=== PATIENT | male | born 1960 | race Caucasian/White ===

== ENCOUNTER → 2023-01-31 13:29 | Outpatient (CLI) | payer OTHER, SELFPAY ==
--- NOTE | 2023-01-31 13:37 | DI.CT.S_ITS ---
PROCEDURE: CT KIDNEY URETER BLADDER (KUB) INDICATIONS: calculus of kidney TECHNIQUE: Axial sections were acquired from the lung bases to the pubic symphysis. Coronal and sagittal reformats were performed. For radiation dose reduction, the following was used: automated exposure control, adjustment of mA and/or kV according to patient size. COMPARISON: None. FINDINGS: Image quality: Excellent. Lung bases: Unremarkable. Heart: No significant findings. URINARY: Right Kidney: No stones or hydronephrosis. Right Ureter: No hydroureter. Left Kidney: There are multiple nonobstructing calculi within the lower pole of the left kidney, the largest of which measures 1.4 cm and diameter and 386 Hounsfield units in density. An obstructing calculus is present within the left proximal ureter which measures 1.8 cm in diameter and 859 Hounsfield units in density. There is moderate left hydronephrosis and perinephric fat stranding. Left Ureter: The downstream ureter is decompressed. No hydroureter or ureterolithiasis. Bladder: Normal wall thickness. No stones. ABDOMEN: Liver: Unremarkable. Gallbladder: Unremarkable. Biliary ducts: Unremarkable. Pancreas: Unremarkable. Spleen: Unremarkable. Adrenal Glands: Unremarkable. Stomach and Bowel: Stomach, small bowel loops, and colon are unremarkable. The appendix is thin walled and gas filled. Peritoneum: No abnormal intraperitoneal fluid. No free air. Ventral Wall: No hernia. Abdominal Nodes: No enlarged retroperitoneal or mesenteric lymph nodes. Vessels: Aorta and inferior vena cava are normal in size. PELVIS: Pelvic Organs: Unremarkable. Pelvic Nodes: Unremarkable. Miscellaneous: No inguinal hernias are seen. Bones: Unremarkable. IMPRESSION: 1. Multiple nonobstructing calculi within the left kidney. 2. Large obstructing calculus within the proximal left ureter with moderate resultant hydronephrosis and perinephric fat stranding. 3. No other acute intra-abdominal findings. Normal appendix. Dictated by: Andreia Hassan M.D. on 01/31/2023 at 15:53 Approved by: Andreia Hassan M.D. on 01/31/2023 at 15:57
== END ==
PROVIDERS: PCP Internal Medicine; Referring Provider Specialist; Visit Provider Specialist
DX: N13.2 Hydronephrosis with renal and ureteral calculous obstruction (principal)
CPT/HCPCS: 74176

== ENCOUNTER → 2023-02-21 10:53 | Outpatient (CLI) | payer OTHER, SELFPAY ==
--- NOTE | 2023-02-21 10:55 | DI.RAD.S_ITS ---
PROCEDURE: XR KUB INDICATIONS: kidney stones TECHNIQUE: One view of the abdomen acquired. COMPARISON: [facility], CT, CT KIDNEY URETER BLADDER (KUB), 01/31/2023, 14:08. FINDINGS: Surgical changes and devices: None. Bowel: Bowel gas pattern is normal. Soft tissues: Overall similar left renal and renal pelvis calcified stones, the largest measuring 2.6 x 2.2 cm in the renal pelvis, similar to prior. Intrarenal stones are also similar to prior. Bones: Degenerative changes. IMPRESSION: Left renal pelvis and intrarenal stones are similar compared to CT from 01/31/2023. Dictated by: Lobito Mares M.D. on 02/21/2023 at 13:52 Approved by: Lobito Mares M.D. on 02/21/2023 at 13:53
== END ==
PROVIDERS: PCP Internal Medicine; Referring Provider Specialist; Visit Provider Specialist
DX: N20.0 Calculus of kidney (principal)
CPT/HCPCS: 74018

== ENCOUNTER 2023-03-02 06:05 | Day surgery (SDC) | payer OTHER, SELFPAY ==
[2023-03-01 10:48] VITALS: BMI 37.5
--- NOTE | 2023-03-02 | DI.RAD.S_ITS ---
PROCEDURE: XR ABDOMEN 1V COMPARISON: None. INDICATIONS: STENT PLACEMENT FINDINGS: Fluoroscopic guidance utilized for a nephroureteral stent placement. IMPRESSION: Fluoroscopic guidance. Dictated by: Aneudy Wilson M.D. on 03/02/2023 at 13:35 Approved by: Aneudy Wilson M.D. on 03/02/2023 at 13:35
[2023-03-02 06:52] VITALS: BP 121/80; PULSE 60; RESP 16; TEMP 36.6; O2SAT 97; BMI 37.5
[2023-03-02] MEDS: LACTATED RINGERS 1,000 ML 42 ML IV (06:52)
--- NOTE | 2023-03-02 07:22 | PM.PREOP ---
Pre-operative Note COVID-19 Criteria for continued procedure: Expected advancement of disease process, Possibility delay results in more complex future surgery or treatment, Continuing or worsening of significant or severe pain, Delay expected to result in less-positive ultimate med/surg outcome and Non-surgical alternatives not available or appropriate per current SOC Interval Note History & Physical reviewed/Exam performed by Physician: Yes Changes to H&P: No
[2023-03-02] MEDS: CEFAZOLIN 2 GM/100 ML PREMIX 100 ML IV (07:48)
--- NOTE | 2023-03-02 08:13 | SUR.OPER ---
Lithotomy on padded OR bed, head on pillow, arms secured on padded arm boards at <90 degrees abduction. Legs secured in padded yellow fins stirrups.
[2023-03-02 08:32] VITALS: BP 106/55; PULSE 59; RESP 11; O2SAT 93
--- NOTE | 2023-03-02 08:33 | P.OP_ITS ---
Operative Date/Time/Diagnoses Date of procedure: 03/02/23 Time of procedure: 08:20 Pre-op diagnosis: 1. Left nephrolithiasis. 2. Left renal colic. Post-op diagnosis: same Procedure & Clinicians Procedure: 1. Cystoscopy/left UPJ stone manipulation without removal. 2. Cystoscopy/placement left ureteral stent (8 Moroccan by 20-32 cm multi-length). Same procedure as scheduled: Yes Indications: 1. Left renal calculi. 2. Left renal colic. Surgeon: Jorge Luis Weeks Click Yes if Unassisted: Yes Anesthesia Type: General Operative Notes Findings: 1. Urethra-normal caliber without annular stricture or lesion. 2. External sphincter-coapted with normal overlying urothelium. 3. Prostate-4+ cm length with [id number] lateral lobe hyperplasia and elevated median bar. 4. Bladder-1+ trabeculation. Normal ureteral orifices bilaterally but they were in close approximation to the median lobe ledge making visualization and access somewhat more challenging requiring the use of a 5 [place] catheter to assist direct in the hybrid guidewire into the left collecting system. Closure Type: not applicable Specimen(s): none sent Applied: other (Eight Moroccan by 22-32 cm multilink stent.) Estimated Blood Loss (mL): 0 Blood products transfused: none Procedure in detail: The patient was positioned in supine was administered general anesthesia. He was then repositioned in semi-lithotomy and the lower abdomen, genitalia, and groin were then prepped and draped in sterile fashion. A 22 Moroccan zacarias endoscope was then passed the lower urinary tract with the findings as described above. A 0.35 hybrid guidewire was then advanced and left collecting system direct and fluoroscopic guidance. An 8 [place] by 22-32 cm multilink stent was then selected and advanced over the hybrid guidewire, again under direct and fluoroscopic guidance. Positioning was satisfactory. NO RETRIEVAL LINE WAS LEFT ATTACHED. The bladder was then drained completely and all instrumentation was removed. The patient was then repositioned in supine, awakened, transferred to [facility] then transported recovery in stable condition. Complications: none Post-operative Condition: stable Disposition: PACU Plan for aftercare: 1. Discharge home today. 2. Return to [facility] 1 week for scheduled left extracorporeal shockwave lithotripsy.
[2023-03-02 08:37] VITALS: BP 106/52; PULSE 60; RESP 14; O2SAT 92
[2023-03-02 08:42] VITALS: BP 104/56; PULSE 58; RESP 13; O2SAT 90
[2023-03-02 08:49] VITALS: BP 108/52; PULSE 55; RESP 11; O2SAT 96
[2023-03-02 09:03] VITALS: BP 104/56; PULSE 54; RESP 12; O2SAT 95
[2023-03-02] MEDS: OXYCODONE/ACETAMINOPHEN 5/325 TABLET 1 TAB PO (09:32)
== END 2023-03-02 09:15 | disposition home or self-care (01) ==
PROVIDERS: PCP Internal Medicine; Referring Provider Specialist; Visit Provider Specialist
PROC: (CPT 52330; principal; 2023-03-02 07:45)
DX: N20.0 Calculus of kidney (principal); N40.0 Benign prostatic hyperplasia without lower urinary tract symptoms
CPT/HCPCS: 52330; 52332; 74018; 76000; J0690; J1100; J2405; J2704; J3010

== ENCOUNTER 2023-03-09 06:18 | Day surgery (SDC) | payer OTHER, SELFPAY ==
[2023-03-09] VITALS (8 sets, daily range): BP systolic 102–147; BP diastolic 56–84; PULSE 60–94; RESP 12–25; TEMP 35.9–36.4; O2SAT 92–97; BMI 37.5
--- NOTE | 2023-03-09 | DI.RAD.S_ITS ---
PROCEDURE: XR KUB INDICATIONS: Left renal calculi TECHNIQUE: One view of the abdomen acquired. COMPARISON: [facility], CR, XR ABDOMEN 1V, 03/02/2023, 8:17. [facility], CT, CT KIDNEY URETER BLADDER (KUB), 01/31/2023, 14:08. [facility], CR, XR KUB, 02/21/2023, 11:03. FINDINGS: Surgical changes and devices: Left ureteral stent in place with upper end projecting over the left kidney and lower end projecting over the bladder. Bowel: Nonobstructive bowel gas pattern Soft tissues: Multiple left renal calculi present as before, largest measures approximately 2.6 centimeters projecting over the left renal pelvis. Bones: Lumbar spine degenerative changes. IMPRESSION: Interval placement of a left ureteral stent. Left renal calculi present as before. This report is concordant with the preliminary report. Dictated by: Pollo Jesus M.D. on 03/09/2023 at 8:54 Approved by: Pollo Jesus M.D. on 03/09/2023 at 8:58
[2023-03-09] MEDS: LACTATED RINGERS 1,000 ML 21 ML IV (06:50)
--- NOTE | 2023-03-09 07:22 | PM.PREOP ---
Pre-operative Note COVID-19 Criteria for continued procedure: Expected advancement of disease process, Possibility delay results in more complex future surgery or treatment, Deterioration of the patient's condition or overall health, Delay expected to result in less-positive ultimate med/surg outcome and Non-surgical alternatives not available or appropriate per current SOC Interval Note History & Physical reviewed/Exam performed by Physician: Yes Changes to H&P: No
--- NOTE | 2023-03-09 08:02 | SUR.OPER ---
Supine on padded OR bed, head on pillow, arms secured on padded arm boards at <90 degrees abduction, legs uncrossed, safety belt at thigh, tape over blanket over lower legs.
--- NOTE | 2023-03-09 08:48 | P.OP_ITS ---
Operative Date/Time/Diagnoses Date of procedure: 03/09/23 Time of procedure: 08:30 Pre-op diagnosis: 1. Left nephrolithiasis. 2. History of left renal colic. 3. Retained left ureteral stent. Procedure & Clinicians Procedure: 1. Left extracorporeal shockwave lithotripsy (2000 shocks 2 most inferior UPJ calculus, and 1000 shocks to a 5 x 6 mm interpolar calculus at maximal power level some 7.5). Same procedure as scheduled: Yes Indications: 1. Left renal calculi. 2. History of left renal colic. 3. Retained left ureteral stent. Surgeon: Jorge Luis Weeks Anesthesia Type: General Operative Notes Findings: Seven variably sized intermediate area radiopaque calculi within the left kidney and UPJ. Closure Type: not applicable Specimen(s): none sent Estimated Blood Loss (mL): 0 Procedure in detail: The patient was positioned supine and was administered general anesthesia. The most inferior left UPJ calculus was localized in the X, Y, and Z plane. Lithotripsy was then commenced at minimal power level for 200 shocks. A 2 minute pause was then conducted. Lithotripsy was then resumed and power level increased to 7.5. A total of 2000 shocks were delivered to this calculus. Next, the treatment head was adjusted and re localized to a 5 x 6 mm calculus in the interpolar region. It was localized in the X, Y, and Z plane. Lithotripsy was resumed as 7.5 and a total of 1000 shocks were delivered to the stone. The patient was then awakened transferred to [facility] and transferred to recovery in stable condition. Complications: none Post-operative Condition: stable Disposition: PACU Plan for aftercare: Discharge home
== END 2023-03-09 09:56 | disposition home or self-care (01) ==
PROVIDERS: PCP Internal Medicine; Referring Provider Specialist; Visit Provider Specialist
PROC: (CPT 50590; principal; 2023-03-09 07:45)
DX: N20.0 Calculus of kidney (principal); N40.0 Benign prostatic hyperplasia without lower urinary tract symptoms; R97.20 Elevated prostate specific antigen [PSA]
CPT/HCPCS: 50590; 74018; 87086; J1100; J1885; J2405; J2704; J3010

== ENCOUNTER → 2023-04-19 10:20 | Outpatient (CLI) | payer OTHER, SELFPAY ==
--- NOTE | 2023-04-19 10:21 | DI.RAD.S_ITS ---
PROCEDURE: XR KUB INDICATIONS: kidney stones TECHNIQUE: One view of the abdomen acquired. COMPARISON: [facility], CR, XR ABDOMEN 1V, 03/02/2023, 8:17. [facility], CR, XR KUB, 02/21/2023, 11:03. [facility], CT, CT KIDNEY URETER BLADDER (KUB), 01/31/2023, 14:08. [facility], CR, XR KUB, 03/09/2023, 6:33. FINDINGS: Surgical changes and devices: Unchanged double-J left ureteral stent. Bowel: Bowel gas pattern is normal. Soft tissues: Large left renal pelvic calculus measuring 2.6 cm, as before. Multiple sizable left renal calculi. Visualized solid organ contours appear normal in size. Bones: No suspicious bony lesions. IMPRESSION: Unchanged position of left ureteral stent. Multiple sizable left renal stones and a large left renal pelvic stone are unchanged. Dictated by: Bro Kevin M.D. on 04/19/2023 at 11:52 Approved by: Bro Kevin M.D. on 04/19/2023 at 11:54
== END ==
PROVIDERS: PCP Internal Medicine; Referring Provider Specialist; Visit Provider Specialist
DX: N20.0 Calculus of kidney (principal); N40.0 Benign prostatic hyperplasia without lower urinary tract symptoms; Z96.0 Presence of urogenital implants
CPT/HCPCS: 74018; 82365; 87086

== ENCOUNTER → 2023-04-19 14:05 | Outpatient (CLI) | payer OTHER, SELFPAY ==
[2023-04-25 15:36] LABS: Ca oxalate dihydrate 70 % (.); Ca oxalate monohydr 30 % (.)
== END ==
PROVIDERS: PCP Internal Medicine; Visit Provider Specialist
DX: N40.0 Benign prostatic hyperplasia without lower urinary tract symptoms (principal); N20.0 Calculus of kidney
CPT/HCPCS: 82365; 87086